=== PATIENT | male | born 1970 | race African-American/Black ===

== ENCOUNTER 2017-02-16 09:06 | Emergency (ER) | payer OTHER ==
[~2017-02-16] VITALS: Ht 185.4 cm; Wt 96.0 kg
[2017-02-16] MEDS ORDERED: KETOROLAC 60MG/2ML VIAL IM ONE (12:45)
[2017-02-16 13:01] VITALS: BP 113/72
[2017-02-16 13:10] LABS: CLARITY URINE CLEAR (CLEAR); COLOR URINE YELLOW (YELLOW); GLUCOSE URINE NEGATIVE (NEGATIVE); KETONES URINE NEGATIVE (NEGATIVE); LEUKOCYTE ESTERASE URINE NEGATIVE (NEGATIVE); NITRITE URINE NEGATIVE (NEGATIVE); OCCULT BLOOD URINE NEGATIVE (NEGATIVE); PH URINE 5.5 (4.5-8.0); PROTEIN URINE NEGATIVE (NEGATIVE); UROBILINOGEN URINE 0.2 E.U./dL (0.2-1.0)
== END 2017-02-16 14:05 | disposition home or self-care (01) ==
LOC: ER 12:37
DX: M54.5 Low back pain (principal)
CPT/HCPCS: 81003; 96372; 99283; J1885

== ENCOUNTER 2018-08-22 19:03 | Inpatient (IN) | payer OTHER ==
[~2018-08-22] VITALS: Ht 185.4 cm; Wt 105.7 kg
[2018-08-22] MEDS ORDERED: ASPIRIN 81MG TABLET PO ONE (22:45)
[2018-08-22] MEDS ORDERED: SODIUM CHLORIDE 0.9% 1000ML BAG (SEPSIS BOLUS) IV ONE (23:15)
[2018-08-22] MEDS ORDERED: LEVOFLOXACIN 750MG PREMIX 150 ML IV ONE (23:15)
[2018-08-22 23:25] LABS: BASOPHILS % 1.1 % (0.0-2.0); EOSINOPHILS % 2.5 % (0.0-5.0); HEMATOCRIT. 45.4 % (42.0-52.0); LYMPHOCYTES % 32.9 % (20.0-50.0); MEAN CORPUSCULAR HEMOGLOBIN 27.7 pg (28.0-32.0); MEAN CORPUSCULAR VOLUME 83.7 fL (80.0-94.0); MEAN PLATELET VOLUME 7.8 fl (7.4-10.4); MONOCYTES % 7.7 % (2.0-8.0); NEUTROPHILS % 55.8 % (40.0-76.0); PLATELET 296 x1000/uL (130-400); RED BLOOD CELL COUNT 5.42 mill/uL (4.7-6.1); RED CELL DISTRIBUTION WIDTH 12.9 % (11.6-14.6)
[2018-08-22 23:26] LABS: CHLORIDE 105 mEq/L (98-107)
[2018-08-22] MEDS ORDERED: ASPIRIN 81MG TABLET ONE (23:42)
[2018-08-22 23:54] LABS: CLARITY URINE CLEAR (CLEAR); COLOR URINE YELLOW (YELLOW); KETONES URINE NEGATIVE (NEGATIVE); LEUKOCYTE ESTERASE URINE NEGATIVE (NEGATIVE); NITRITE URINE NEGATIVE (NEGATIVE); OCCULT BLOOD URINE NEGATIVE (NEGATIVE); PH URINE 5.5 (4.5-8.0); PROTEIN URINE NEGATIVE (NEGATIVE); SPECIFIC GRAVITY URINE 1.011 (1.005-1.030); UROBILINOGEN URINE 0.2 E.U./dL (0.2-1.0)
[2018-08-23 00:07] LABS: D-DIMER < 0.19 mg/L FEU (<0.50); INR 1.1; PARTIAL THROMBOPLASTIN TIME 28.7 sec (23.4-31.0); PROTHROMBIN TIME 10.7 sec (9.1-11.1)
[2018-08-23 00:13] LABS: *AMPHETAMINES SCREEN URINE NEGATIVE (NEGATIVE); *COCAINE SCREEN URINE NEGATIVE (NEGATIVE)
[2018-08-23 00:14] LABS: CANNABINOID URINE SCREEN NEGATIVE (NEGATIVE); METHADONE URINE SCREEN NEGATIVE (NEGATIVE); OPIATES URINE SCREEN NEGATIVE (NEGATIVE); PHENCYCLIDINE URINE SCREEN NEGATIVE (NEGATIVE)
[2018-08-23 00:15] LABS: *BARBITURATES SCREEN URINE NEGATIVE (NEGATIVE); *BENZODIAZEPINES SCREEN URINE NEGATIVE (NEGATIVE)
[2018-08-23 08:50] VITALS: BP 151/93
[2018-08-23 09:32] VITALS: BP 151/93
[2018-08-23] MEDS ORDERED: METOPROLOL TARTRATE 25MG TABLET PO SCH (10:00)
[2018-08-23] MEDS ORDERED: ASPIRIN 81MG TABLET PO SCH (10:00)
[2018-08-23] MEDS ORDERED: ENOXAPARIN 40MG/0.4ML SYR SUBCUT SCH (10:00)
[2018-08-23] MEDS ORDERED: ACETAMINOPHEN 325MG TABLET PO PRN (10:00)
[2018-08-23] MEDS ORDERED: ONDANSETRON HCL 4MG/2ML INJ IV PRN (10:00)
[2018-08-23] MEDS ORDERED: HYDROCODONE/ACETAMINOPHEN 5/325MG TABLET PO PRN (10:00)
[2018-08-23] MEDS ORDERED: ENOXAPARIN 30MG/0.3ML SYR SUBCUT SCH (10:15)
[2018-08-23] MEDS ORDERED: LEVOFLOXACIN 500MG TABLET PO SCH (11:00)
[2018-08-23 12:00] VITALS: BP 141/80
[2018-08-23] MEDS ORDERED: REGADENOSON 0.4 MG/5 ML IV SCH (13:00)
[2018-08-23 13:05] VITALS: BP 141/80
== END 2018-08-23 14:50 | disposition short-term general hospital (02) | DRG 203 ==
LOC: ER 19:03 → 6WST 08-23 00:31 → ENRESERV 08-23 07:19 → 6WST 08-23 08:43
PROVIDERS: ADMIT Internal Medicine; ATTEND Internal Medicine
DX: M94.0 Chondrocostal junction syndrome [Tietze] (principal); I10 Essential (primary) hypertension; R10.9 Unspecified abdominal pain; Z91.14 Patient's other noncompliance with medication regimen; Z79.899 Other long term (current) drug therapy
CPT/HCPCS: 36415; 71045; 80305; 82962; 83605; 83880; 84484; 85379; 93005; 96365; 99285; J1650; J1956; J7030

== ENCOUNTER 2019-07-20 17:10 | Emergency (ER) | payer OTHER ==
[~2019-07-20] VITALS: Ht 182.9 cm; Wt 110.0 kg
[2019-07-20 21:43] LABS: BASOPHILS % 0.6 % (0.0-2.0); HEMOGLOBIN. 14.2 g/dL (14.0-18.0); LYMPHOCYTES % 29.4 % (20.0-50.0); MEAN CORPUSCULAR HEMOGLOBIN 27.4 pg (28.0-32.0); MEAN CORPUSCULAR VOLUME 83.2 fL (80.0-94.0); MEAN PLATELET VOLUME 7.5 fl (7.4-10.4); MONOCYTES % 8.7 % (2.0-8.0); NEUTROPHILS % 60.3 % (40.0-76.0); PLATELET 305 x1000/uL (130-400); RED BLOOD CELL COUNT 5.17 mill/uL (4.7-6.1)
[2019-07-20 21:46] LABS: CHLORIDE 105 mEq/L (98-107)
[2019-07-20 21:48] LABS: INR 1.1; PARTIAL THROMBOPLASTIN TIME 30.9 sec (23.4-31.0)
[2019-07-20 21:50] LABS: ETHANOL BLOOD < 10 mg/dL
[2019-07-20 21:54] LABS: CREATINE KINASE 270 IU/L (39-308)
[2019-07-20 21:57] LABS: CREATINE KINASE MB FRACTION < 1.0 ng/mL (0.5-3.6)
[2019-07-20 21:59] LABS: CLARITY URINE CLEAR (CLEAR); COLOR URINE YELLOW (YELLOW); KETONES URINE NEGATIVE (NEGATIVE); LEUKOCYTE ESTERASE URINE NEGATIVE (NEGATIVE); NITRITE URINE NEGATIVE (NEGATIVE); OCCULT BLOOD URINE NEGATIVE (NEGATIVE); PH URINE 6.5 (4.5-8.0); PROTEIN URINE NEGATIVE (NEGATIVE); SPECIFIC GRAVITY URINE 1.009 (1.005-1.030); UROBILINOGEN URINE 0.2 E.U./dL (0.2-1.0)
[2019-07-20 22:14] LABS: *AMPHETAMINES SCREEN URINE NEGATIVE (NEGATIVE); *BARBITURATES SCREEN URINE NEGATIVE (NEGATIVE); *BENZODIAZEPINES SCREEN URINE NEGATIVE (NEGATIVE); *COCAINE SCREEN URINE NEGATIVE (NEGATIVE)
[2019-07-20 22:15] LABS: CANNABINOID URINE SCREEN NEGATIVE (NEGATIVE); METHADONE URINE SCREEN NEGATIVE (NEGATIVE); OPIATES URINE SCREEN NEGATIVE (NEGATIVE); PHENCYCLIDINE URINE SCREEN NEGATIVE (NEGATIVE)
[2019-07-20 23:09] VITALS: BP 149/68
== END 2019-07-21 00:16 | disposition home or self-care (01) ==
LOC: ER 17:10 → CANBEDREQ 07-21 00:28
DX: I10 Essential (primary) hypertension (principal); R55 Syncope and collapse
CPT/HCPCS: 36415; 70450; 71045; 80053; 80305; 80320; 81003; 82550; 82553; 83690; 83880; 84443; 84484; 85025; 85610; 85730; 93005; 99284; Z7610; G0480